=== PATIENT | male | born 1985 | race Caucasian/White ===

== ENCOUNTER 2017-01-07 18:00 | Emergency (ER) | payer OTHER ==
[~2017-01-07] VITALS: Ht 170.2 cm; Wt 83.9 kg
[2017-01-07 19:14] VITALS: BP 142/87
[2017-01-07] MEDS ORDERED: KEFLEX500 MG PO (19:41)
== END 2017-01-07 19:47 | disposition home or self-care (01) ==
LOC: ER 18:00
DX: S61.531A Puncture wound without foreign body of right wrist, initial encounter (principal); Z87.891 Personal history of nicotine dependence; X58.XXXA Exposure to other specified factors, initial encounter; Y93.89 Activity, other specified; Y92.89 Other specified places as the place of occurrence of the external cause; Y99.9 Unspecified external cause status

== ENCOUNTER 2017-02-16 21:12 | Emergency (ER) | payer OTHER ==
[~2017-02-16] VITALS: Ht 170.2 cm; Wt 83.9 kg
--- NOTE | ~2017-02-16 | EKG ---
[place] [address] [facility] [place] [address] ELECTROCARDIOGRAM REPORT Name: YORDY GILLIAM Room #: [facility] [id number] Admission: 02/16/17 Attend Phys: Discharge: 02/16/17 Date of : 81 Report #: [id number] THIS REPORT FOR: //name// [facility] ED Test Date: 2017-02-16 Test Time: 21:19:07 Pat Name: YORDY GILLIAM Department: Room: Gender: Roll Builder: Gely ARROYO : 1985 Requested By: Trever Pagan Order Number: [id number] MD: Rigoberto Rodriguez Measurements Intervals [place] Rate: 112 P: 48 ME: 151 QRS: -1 QRSD: 101 T: 55 QT: 317 QTc: 433 Interpretive Statements Sinus tachycardia Nonspecific T wave abnormality Baseline wander in lead(s) I,II,V1,V2,V4,V5,V6 No previous ECG available for comparison Electronically Signed On 02-18-2017 7:59:36 CDT by Rigoberto Rodriguez [email or web address] <ELECTRONICALLY SIGNED> By: Rigoberto Rodriguez MD, [facility] 02/18/17 [id number] 18 18 Rigoberto Rodriguez MD, [facility] /EPI
[~2017-02-16 21:12] MED LIST: KEFLEX500 MG PO
[2017-02-16 21:45] LABS: HEMATOCRIT 43.5 % (42.0-52.0); HEMOGLOBIN 14.9 gm/dL (14.0-18.0); MCH 29.4 pg (26.0-34.0); MCHC 34.4 g/dL (28.0-37.0); MCV 85.5 fL (80.0-100.0); PLATELET COUNT 248 thou/uL (150-400); RBC 5.08 mil/uL (4.50-6.00); RDW 13.2 % (10.5-14.5); WBC 8.1 thou/uL (4.0-11.0)
[2017-02-16 21:48] LABS: MANUAL DIFF YES
[2017-02-16 21:54] LABS: ANION GAP 11 mmol/L (7-16); BUN 28 mg/dL (7-18); CALCIUM 9.1 mg/dL (8.5-10.1); CHLORIDE 100 mmol/L (98-107); CO2 26 mmol/L (21-32); CREATININE 1.3 mg/dL (0.7-1.3); GLUCOSE 118 mg/dL (74-106); POTASSIUM 3.3 mmol/L (3.5-5.1); SODIUM 137 mmol/L (136-145)
[2017-02-16 22:04] LABS: TROPONIN-I < 0.04 ng/mL (<0.04-0.07)
[2017-02-16 22:19] LABS: ABSOLUTE NEUTROPHILS 6.1 thou/uL (1.4-8.2); TOTAL CELL COUNT 100
[2017-02-16] MEDS ORDERED: VALACYCLOVIR1000 MG PO (22:36)
[2017-02-16] MEDS ORDERED: SENOKOT-S1 TA1 PO (22:36)
[2017-02-16] MEDS ORDERED: NORCO 5-325 TA1 EACH PO (22:45)
[2017-02-16 22:56] VITALS: BP 119/77
== END 2017-02-16 23:05 | disposition home or self-care (01) ==
LOC: ER 21:12
PROVIDERS: Physician Assistant
DX: R07.89 Other chest pain (principal); B02.9 Zoster without complications; F10.99 Alcohol use, unspecified with unspecified alcohol-induced disorder; Z87.891 Personal history of nicotine dependence

== ENCOUNTER 2017-10-23 16:12 | Emergency (ER) | payer OTHER ==
[~2017-10-23] VITALS: Ht 172.7 cm; Wt 86.2 kg
[~2017-10-23 16:12] MED LIST changes: +NORCO 5-325 TA1 EACH PO; +SENOKOT-S1 TA1 PO; +VALACYCLOVIR1000 MG PO
[2017-10-23] MEDS ORDERED: IBUPROFEN 600600 M1 PO (16:31)
[2017-10-23] MEDS ORDERED: AUGMENTIN 875-1 EACH PO (16:31)
== END 2017-10-23 16:55 | disposition home or self-care (01) ==
LOC: ER 16:12
DX: S61.234A Puncture wound without foreign body of right ring finger without damage to nail, initial encounter (principal); Z87.891 Personal history of nicotine dependence; W54.0XXA Bitten by dog, initial encounter; Y93.89 Activity, other specified; Y92.89 Other specified places as the place of occurrence of the external cause; Y99.8 Other external cause status

== ENCOUNTER 2020-04-16 04:20 | Emergency (ER) | payer OTHER ==
[~2020-04-16] VITALS: Ht 175.3 cm; Wt 86.2 kg
[~2020-04-16 04:20] MED LIST changes: +AUGMENTIN 875-1 EACH PO; +IBUPROFEN 600600 M1 PO
[2020-04-16] MEDS ORDERED: NOHOMEMEDICATIONS (04:27)
[2020-04-16 05:28] VITALS: BP 136/93
== END 2020-04-16 05:29 | disposition home or self-care (01) ==
LOC: ER 04:20
DX: S61.012A Laceration without foreign body of left thumb without damage to nail, initial encounter (principal); Z79.899 Other long term (current) drug therapy; Z87.891 Personal history of nicotine dependence; W26.8XXA Contact with other sharp object(s), not elsewhere classified, initial encounter; Y93.89 Activity, other specified; Y92.89 Other specified places as the place of occurrence of the external cause; Y99.8 Other external cause status

== ENCOUNTER 2020-04-22 15:38 | Emergency (ER) | payer OTHER ==
[~2020-04-22] VITALS: Ht 170.2 cm; Wt 86.2 kg
[~2020-04-22 15:38] MED LIST changes: +NOHOMEMEDICATIONS
[2020-04-22 16:00] VITALS: BP 126/90
[2020-04-22] MEDS ORDERED: KEFLEX500 M1 PO (16:16)
== END 2020-04-22 16:41 | disposition home or self-care (01) ==
LOC: ER 15:38
DX: L03.012 Cellulitis of left finger (principal); Z87.891 Personal history of nicotine dependence

== ENCOUNTER 2020-05-09 14:03 | Emergency (ER) | payer OTHER ==
[~2020-05-09] VITALS: Ht 167.6 cm; Wt 86.2 kg
[~2020-05-09 14:03] MED LIST changes: +KEFLEX500 M1 PO
[2020-05-09] MEDS ORDERED: NORCO 5-325 TA1 EAC2 PO (15:44)
[2020-05-09] MEDS ORDERED: ERYTHROMYCIN E3.5 G3 OPHTHALMIC (15:44)
[2020-05-09 16:15] VITALS: BP 144/97
== END 2020-05-09 17:02 | disposition home or self-care (01) ==
LOC: ER 14:03
DX: H16.8 Other keratitis (principal); Z79.899 Other long term (current) drug therapy; Z87.891 Personal history of nicotine dependence

== ENCOUNTER 2020-05-10 18:56 | Emergency (ER) | payer OTHER ==
[~2020-05-10] VITALS: Ht 170.2 cm; Wt 86.2 kg
[~2020-05-10 18:56] MED LIST changes: +ERYTHROMYCIN E3.5 G3 OPHTHALMIC; +NORCO 5-325 TA1 EAC2 PO
[2020-05-10 18:57] VITALS: BP 124/98
== END 2020-05-10 23:43 | disposition home or self-care (01) ==
LOC: ER 18:56
DX: S61.210A Laceration without foreign body of right index finger without damage to nail, initial encounter (principal); M79.645 Pain in left finger(s); R60.0 Localized edema; Z88.1 Allergy status to other antibiotic agents; Z88.8 Allergy status to other drugs, medicaments and biological substances; Z87.891 Personal history of nicotine dependence; W23.0XXA Caught, crushed, jammed, or pinched between moving objects, initial encounter; Y93.89 Activity, other specified; Y92.59 Other trade areas as the place of occurrence of the external cause; Y99.8 Other external cause status

== ENCOUNTER 2020-05-25 14:05 | Emergency (ER) | payer OTHER ==
[~2020-05-25] VITALS: Ht 170.2 cm; Wt 86.2 kg
[2020-05-25 14:10] VITALS: BP 128/84
[2020-05-25] MEDS ORDERED: VIBRAMYCIN 100100 MG PO (14:41)
== END 2020-05-25 14:53 | disposition home or self-care (01) ==
LOC: ER 14:05
DX: S60.410A Abrasion of right index finger, initial encounter (principal); L08.9 Local infection of the skin and subcutaneous tissue, unspecified; Z87.891 Personal history of nicotine dependence; Z79.899 Other long term (current) drug therapy; X58.XXXA Exposure to other specified factors, initial encounter; Y93.89 Activity, other specified; Y92.89 Other specified places as the place of occurrence of the external cause; Y99.8 Other external cause status

== ENCOUNTER 2020-06-08 06:26 | Emergency (ER) | payer OTHER ==
[~2020-06-08] VITALS: Ht 170.2 cm; Wt 88.5 kg
[~2020-06-08 06:26] MED LIST changes: +VIBRAMYCIN 100100 MG PO
[2020-06-08 06:31] VITALS: BP 150/90
[2020-06-08] MEDS ORDERED: BACTRIM DS TAB1 EACH PO (07:05)
[2020-06-08] MEDS ORDERED: CLEOCIN HCL150 M1 PO (07:05)
== END 2020-06-08 07:22 | disposition home or self-care (01) ==
LOC: ER 06:26
DX: S60.512A Abrasion of left hand, initial encounter (principal); S60.511A Abrasion of right hand, initial encounter; Z87.891 Personal history of nicotine dependence; W55.03XA Scratched by cat, initial encounter; Y93.89 Activity, other specified; Y92.89 Other specified places as the place of occurrence of the external cause; Y99.8 Other external cause status

== ENCOUNTER 2021-02-07 13:32 | Emergency (ER) | payer OTHER ==
[~2021-02-07] VITALS: Ht 170.2 cm; Wt 81.7 kg
[~2021-02-07 13:32] MED LIST changes: +BACTRIM DS TAB1 EACH PO; +CLEOCIN HCL150 M1 PO
[2021-02-07] MEDS ORDERED: IBU600 MG PO (15:03)
[2021-02-07 15:04] VITALS: BP 116/84
[2021-02-07] MEDS ORDERED: NORCO5 PO (15:06)
== END 2021-02-07 15:08 | disposition home or self-care (01) ==
LOC: ER 13:32
DX: S61.011A Laceration without foreign body of right thumb without damage to nail, initial encounter (principal); Z87.891 Personal history of nicotine dependence; W25.XXXA Contact with sharp glass, initial encounter; Y93.89 Activity, other specified; Y92.89 Other specified places as the place of occurrence of the external cause; Y99.8 Other external cause status

== ENCOUNTER 2021-05-12 02:56 | Emergency (ER) | payer OTHER ==
[~2021-05-12] VITALS: Ht 170.2 cm; Wt 86.2 kg
[~2021-05-12 02:56] MED LIST changes: +IBU600 MG PO; +NORCO5 PO
[2021-05-12] MEDS ORDERED: MAPAP325 MG PO (03:01)
[2021-05-12] MEDS ORDERED: ULTRAM 50MG TAB50 MG PO (04:12)
[2021-05-12 04:24] VITALS: BP 128/78
== END 2021-05-12 04:25 | disposition home or self-care (01) ==
LOC: ER 02:56
DX: M25.522 Pain in left elbow (principal); Z79.891 Long term (current) use of opiate analgesic; Z87.891 Personal history of nicotine dependence

== ENCOUNTER 2021-05-28 15:48 | Emergency (ER) | payer OTHER ==
[~2021-05-28] VITALS: Ht 170.2 cm; Wt 81.7 kg
[~2021-05-28 15:48] MED LIST changes: +MAPAP325 MG PO; +ULTRAM 50MG TAB50 MG PO
[2021-05-28 16:36] LABS: URINE BILIRUBIN NEGATIVE (Negative); URINE BLOOD 1+ (Negative); URINE CLARITY SL CLOUDY; URINE COLOR YELLOW; URINE GLUCOSE-RANDOM* NEGATIVE (Negative); URINE KETONES NEGATIVE (Negative); URINE NITRITE-REFLEX NEGATIVE (Negative); URINE PROTEIN (DIPSTICK) TRACE (Negative); URINE UROBILINOGEN 0.2 E.U./dl (0.2-1.0)
[2021-05-28 16:37] LABS: URINE LEUKOCYTES-REFLEX 2+ (Negative)
[2021-05-28 17:33] LABS: MUCUS >6 Heavy strn/LPF (None Seen); SQUAMOUS None Seen /LPF (0-3); URINE RBC 3-10 Few /HPF (NONE SEEN); URINE WBC-REFLEX >25 Many /HPF (0-5)
[2021-05-28 18:24] LABS: ABSOLUTE NEUTROPHILS 8.9 thou/uL (1.4-8.2); BASOPHILS 0.2 % (0.0-2.0); EOSINOPHILS 0.4 % (0.0-3.0); HEMATOCRIT 42.6 % (42.0-52.0); HEMOGLOBIN 14.3 gm/dL (14.0-18.0); MCHC 33.5 g/dL (28.0-37.0); MCV 86.5 fL (80.0-100.0); MONOCYTES 5.7 % (1.0-8.0); PLATELET COUNT 325 thou/uL (150-400); POLYS 83.7 % (36.0-66.0); RBC 4.92 mil/uL (4.50-6.00); RDW 13.1 % (10.5-14.5); WBC 10.6 thou/uL (4.0-11.0)
[2021-05-28 18:32] LABS: CALCIUM 9.1 mg/dL (8.5-10.1); CREATININE 1.2 mg/dL (0.7-1.3); POTASSIUM 3.8 mmol/L (3.5-5.1)
[2021-05-28 18:37] LABS: ALBUMIN 3.4 g/dL (3.4-5.0); TOTAL PROTEIN 7.4 g/dL (6.4-8.2)
[2021-05-28 21:10] LABS: AMP/METHAMP POSITIVE (Negative); BARBITURATES Negative (Negative); BENZODIAZEPINES Negative (Negative); COCAINE Negative (Negative); METHADONE Negative (Negative); OPIATES Negative (Negative); PCP Negative (Negative)
[2021-05-28] MEDS ORDERED: CEPHALEXIN500 MG PO (21:11)
[2021-05-28] MEDS ORDERED: FLOMAX0.4 MG PO (21:11)
[2021-05-28] MEDS ORDERED: PHENAZOPYRIDIN200 M2 PO (21:11)
[2021-05-28 21:19] VITALS: BP 134/90
== END 2021-05-28 21:21 | disposition home or self-care (01) ==
LOC: ER 15:48
PROVIDERS: Physician Assistant
DX: N39.0 Urinary tract infection, site not specified (principal); M54.5 Low back pain; Z87.442 Personal history of urinary calculi; Z79.891 Long term (current) use of opiate analgesic; Z79.899 Other long term (current) drug therapy; Z87.891 Personal history of nicotine dependence

== ENCOUNTER 2021-06-07 22:58 | Emergency (ER) | payer OTHER ==
[~2021-06-07] VITALS: Ht 170.2 cm; Wt 81.7 kg
[~2021-06-07 22:58] MED LIST changes: +CEPHALEXIN500 MG PO; +FLOMAX0.4 MG PO; +PHENAZOPYRIDIN200 M2 PO
[2021-06-08] MEDS ORDERED: CEPHALEXIN 250250 M1 PO (02:08)
[2021-06-08 02:22] VITALS: BP 140/90
== END 2021-06-08 02:25 | disposition home or self-care (01) ==
LOC: ER 22:58
DX: S61.220A Laceration with foreign body of right index finger without damage to nail, initial encounter (principal); Z87.891 Personal history of nicotine dependence; W45.8XXA Other foreign body or object entering through skin, initial encounter; Y93.89 Activity, other specified; Y92.89 Other specified places as the place of occurrence of the external cause; Y99.8 Other external cause status

== ENCOUNTER 2021-08-27 06:49 | Emergency (ER) | payer OTHER ==
[~2021-08-27] VITALS: Ht 170.2 cm; Wt 81.7 kg
[~2021-08-27 06:49] MED LIST changes: +CEPHALEXIN 250250 M1 PO
[2021-08-27 06:56] VITALS: BP 128/87
[2021-08-27] MEDS ORDERED: KEFLEX750 MG PO (07:01)
[2021-08-27] MEDS ORDERED: BACTRIM DS TAB1 EACH PO (07:17)
== END 2021-08-27 07:50 | disposition home or self-care (01) ==
LOC: ER 06:49
DX: L02.413 Cutaneous abscess of right upper limb (principal); R11.0 Nausea; Z87.442 Personal history of urinary calculi; Z98.890 Other specified postprocedural states; Z79.899 Other long term (current) drug therapy; Z87.891 Personal history of nicotine dependence

== ENCOUNTER 2021-08-30 02:27 | Emergency (ER) | payer OTHER ==
[~2021-08-30] VITALS: Ht 170.2 cm; Wt 81.7 kg
[~2021-08-30 02:27] MED LIST changes: +KEFLEX750 MG PO
[2021-08-30 06:34] VITALS: BP 117/76
== END 2021-08-30 06:43 | disposition home or self-care (01) ==
LOC: ER 02:27
DX: L02.413 Cutaneous abscess of right upper limb (principal); Z87.442 Personal history of urinary calculi; Z98.890 Other specified postprocedural states; Z79.899 Other long term (current) drug therapy; Z87.891 Personal history of nicotine dependence